=== PATIENT | male | born 1945 | race Caucasian/White ===

== ENCOUNTER → 2016-04-19 | Outpatient (CLI) | payer MEDICARE ==
--- NOTE | 2016-04-19 10:46 | CT ---
EXAMINATION TYPE: CT chest w con DATE OF EXAM: 04/19/2016 10:33 AM COMPARISON: X-ray 04/03/2016 HISTORY: abn CXR CT DLP: 144.4 mGycm Automated exposure control for dose reduction was used. CONTRAST: CT scan of the chest is performed with IV Contrast, patient injected with 100 ml mL of Omnipaque 300. FINDINGS: LUNGS: Large area of consolidation extending from the right hilum into the right upper lobe. Hilar ad enopathy suspected. May be on the basis of a pneumonia. Difficult to see the corresponding bronchus w hich may be filled with debris. Consider bronchoscopy. Differential include endobronchial lesion or m ucous plug. Adenopathy in the right hilum raises this question of either post infectious, pneumonia a denopathy versus neoplasm. Pleural-based subpleural nodularity seen in the left upper lobe axial image 22 measuring 3 mm apical pleural thickening noted bilaterally. MEDIASTINUM: There are no greater than 1 cm hilar or mediastinal lymph nodes. No pericardial effusi on is seen. Cardiomegaly and coronary artery calcification noted. OTHER: No pneumothorax. No sizable pleural effusion. Hypertrophic and degenerative change of the spi ne noted. Osseous structures intact. There are multiple lesions within the liver with the largest manuel suring approximately 1 cm. Nonspecific thickening to the adrenal glands noted. IMPRESSION: 1. Large area of consolidation extending from the right hilum into the right upper lobe. Hilar vanessa opathy suspected. May be on the basis of a pneumonia or postobstructive atelectasis. Neoplasm in the differential diagnosis.. Difficult to see the corresponding bronchus which appears to be filled with debris or compressed. Consider bronchoscopy. Differential include endobronchial lesion or mucous plug. Adenopathy in the ri ght hilum raises this question of either post infectious, pneumonia adenopathy versus neoplasm. 2. There is a 1 cm hepatic lesion which does not meet the criteria of a simple cyst. Measures 23 Houn sfield units follow-up ultrasound or MRI suggested.
== END | disposition home or self-care (01) ==
LOC: RADCTMAIN 09:51
PROVIDERS: ATTEND Internal Medicine
DX: J18.1 Lobar pneumonia, unspecified organism (principal); R59.0 Localized enlarged lymph nodes
CPT/HCPCS: 71260; Q9967

== ENCOUNTER 2016-04-26 11:17 | Day surgery (SDC) | payer MEDICARE ==
[2016-04-25 08:55] VITALS: BMI 21.4
--- NOTE | 2016-04-25 14:28 | HP ---
DATE OF ADMISSION: DATE OF SERVICE: 04/24/2016 CHIEF COMPLAINT: Abnormal x-ray. HISTORY OF PRESENTING ILLNESS: Mr. Nando Chino is a 70-year-old male who was seen, evaluated, examined in the office for problems associated with shortness of breath, cough and history of weight loss. Symptoms started about a month ago. Patient has extensive history of dental infection requiring dental filling, recently has been evaluated for dental capping into the molar tooth in the mid to later part of March. Patient started having problems associated with some fever, chills, cough, shortness of breath and wheezing. He was evaluated for chest x-ray, found to be abnormal and subsequently ended up in having a CT scan of the chest which was reviewed by me including the hard copy found to be abnormal and patient is being evaluated in that regard. Past medical history significant for severe COPD, emphysema. Patient is not taking any breathing treatments, history of BPH and history of recent weight loss. FAMILY HISTORY AND SOCIAL HISTORY: , lives with his . History of smoking. He used to smoke half to 1 pack per day, has intermittently smoked close to about 20 - 25 years. Both parents are . History of COPD on paternal side. Past surgical history is unremarkable and noncontributory. Medications at home include: 1. Flomax 0.4 mg daily. 2. Ventolin HFA as needed. 3. Probiotic. REVIEW OF SYSTEMS: CONCRETE PUDDLER: Denies any loss of consciousness, hemiparesis. CARDIORESPIRATORY: Significant for cough, shortness of breath, intermittent sputum production which is white to light yellow in color. GI/: Otherwise unremarkable. MUSCULOSKELETAL: Unremarkable. DERMATOLOGICAL: Unremarkable and noncontributory. Patient does complain of shortness of breath on exertion, which has been going on for several months though and has been slowly progressive. On examination, blood pressure is 138/82, respiratory rate 16, pulse 81, temperature is 99.1, saturation is 91%, weight is 140 pounds, height is 69 inches. HEENT examination is significant for extensive dental swelling throughout both upper and lower teeth. Oral mucosa is moist. HEENT otherwise unremarkable. NECK: Supple without any lymphadenopathy, jugular venous distention or carotid bruit. LUNGS: Bilateral good air entry is present without significant rales, rhonchi, or rub. Some bronchial breath sounds on the right side, upper part cannot be excluded. HEART: Regular rate and rhythm. S1 and S2 audible. Abdomen is soft. No rebound or rigidity. EXTREMITIES: +1 peripheral pulses. NEUROLOGICAL EXAMINATION: Otherwise, awake and alert. No focal neurological deficit. The chest x-ray reviewed and CT scan of the chest reviewed. CT scan performed April 19, 2016 revealed a right hilar consolidation, right upper lobe dense infiltrate with cavitary formation. A perihilar mass versus lymph node on the right side cannot be excluded with the right middle lobe and right upper lobe collapse. Chest x-ray performed April 04 reviewed as well. Similar finding. IMPRESSION: 1. Pneumonia, which may very well be postobstructive pneumonia, involving the right upper lobe with necrotizing portion. Suspect may be a component of gram-negative. For now, patient is relatively stable. Will start oral antibiotics in the form of oral Levaquin. 2. Right hilar mass with collapse of the right upper lobe or neoplastic process can be excluded. The patient is being scheduled for bronchoscopy and lung biopsy at [facility], 3. Benign prostatic hypertrophy. 4. Generalized anxiety disorder. PLAN AND RECOMMENDATION: As above. Procedure of bronchoscopy has been explained to the patient at length, pros and cons as well as alternatives.
[2016-04-26] MEDS ORDERED: LACTATED RINGERS 1,000 ML IV ONE (12:10)
[2016-04-26] MEDS ORDERED: LIDOCAINE 1% 20 ML VIAL (10MG/ML) FOR IV START INTRADERMA ONE (12:11)
[2016-04-26] MEDS ORDERED: PROPOFOL 10 MG/ML 20 ML VIAL IV ONE (12:44)
[2016-04-26] MEDS ORDERED: PHENYLEPHRINE-0.9% NACL SYG 1 MG/10 ML SYRINGE ONE (12:44)
[2016-04-26] MEDS ORDERED: LIDOCAINE 1% INJ 10MG/ML (20 ML MDV) ONE (12:44)
[2016-04-26] MEDS ORDERED: MIDAZOLAM 2 MG/2 ML VIAL ONE (12:44)
[2016-04-26] MEDS ORDERED: KETAMINE 10 MG/ML 20 ML VIAL ONE (12:44)
[2016-04-26] MEDS ORDERED: LABETALOL 5 MG/ML VIAL MDV ONE (12:44)
[2016-04-26] MEDS ORDERED: LIDOCAINE 2% INJ 20 MG/ML INTRATRACH ONE (12:55)
[2016-04-26] MEDS ORDERED: LIDOCAINE 1%-EPI 1:100,000 20 ML VIAL SUBMUCOSAL ONE (13:01)
[2016-04-26 13:27] VITALS: TEMP 98.4
[2016-04-26 14:02] VITALS: RESP 16
--- NOTE | 2016-04-26 14:26 | XR ---
EXAMINATION TYPE: XR chest 1V portable DATE OF EXAM: 04/26/2016 2:19 PM COMPARISON: 04/03/2016 INDICATION: Pneumonia TECHNIQUE: Single frontal view of the chest is obtained. FINDINGS: The heart size is normal. The pulmonary vasculature is normal. There is opacification of the right lower lobe. IMPRESSION: 1. Right lower lobe pneumonia. Findings are worsened over the interval. Follow-up is recommended.
[2016-04-26 15:15] VITALS: BP 102/60; PULSE 78
--- NOTE | 2016-04-26 22:05 | PCN ---
DATE OF PROCEDURE: 04/26/2015 PROCEDURE: 1. Bronchoscopy. 2. Bronchial biopsy from the right lower lobe, superior segment. 3. Bronchial brushing. 4. Bronchoalveolar lavage from the same area. OPERATIVE DETAIL: Patient was prepared and draped in the usual fashion. Informed consent was obtained from the patient. From the right naris the bronchoscope was entered into the nasopharyngeal area followed by placement into the laryngeal area. Vocal cords were normal in structure and function. Tip of the scope was passed beyond the vocal cords into the trachea. The trachea was normal. The tip of the scope was passed to the left side. Left upper lobe, lingular lobe and left lower lobe along with subsegments were inspected. No endobronchial mass or lesion was identified. Tip of the scope was passed subsequently into the right side. Right upper lobe, including trifurcation, was within normal limits. However, on the right side superior segment of the right lower lobe was compressed and narrowed in size, was filled with blood. Suction was performed. Mucosal growth was present, making airway extremely small in size. BAL was performed followed by brushing and biopsy. Some oozing of the blood was noted. Patient was given epinephrine with lidocaine. That seemed to stop the bleeding. Otherwise, patient tolerated the procedure well except episodes of tachycardia and intermittent desaturation. Patient otherwise tolerated the procedure well. No complication noted.
[2016-05-02 15:20] LABS: Mis test requested (Non-blood) Pneumocytis PNEJ
== END 2016-04-26 15:44 | disposition home or self-care (01) ==
LOC: ORWHC2ENDO 11:17
PROVIDERS: ATTEND Internal Medicine Sleep Medicine
DX: J18.9 Pneumonia, unspecified organism (principal); J43.9 Emphysema, unspecified; N40.0 Benign prostatic hyperplasia without lower urinary tract symptoms; F41.1 Generalized anxiety disorder; Z79.899 Other long term (current) drug therapy; Z87.891 Personal history of nicotine dependence
CPT/HCPCS: 87798; 87541; 88104; 88108; 88305; 88342; 87252; 88341; 87070; 87205; 87116; 87102; 87206; 71010; 31625; 31623; 31624; J2001 ×2; J2250; J2370; J2704; 87299; 87496; 87498; 87502; 87529

== ENCOUNTER → 2016-06-05 | Outpatient (CLI) | payer MEDICARE ==
--- NOTE | 2016-06-05 13:13 | CT ---
EXAMINATION TYPE: CT chest wo con DATE OF EXAM: 06/05/2016 12:56 PM COMPARISON: NONE HISTORY: f/u for right lobe pneumonia CT DLP: 193.[address] of the chest was performed with lung and mediastinal window settings submitted. The la ck of contrast limits evaluation of the vascular, mediastinal and parenchymal structures including th e upper abdomen. LUNGS: Large area of consolidation extending from the right hilum to the right upper lobe pleural huy face persists. There is persistent right hilar mass or adenopathy measuring approximately 4.5 x 3.2 c m. Consolidation also extends from the right infrahilar region medially into the right lower lobe. Th ere is narrowing of the right upper lobe bronchus. Stable 4 mm nodule right lower lobe. The left lung appears clear. MEDIASTINUM/MITZI: Thoracic aorta is of normal caliber with limited evaluation given lack of contrast . The heart is not enlarged. Right hilar mass or adenopathy as discussed above. No spinal lymph node s greater than 1cm. UPPER ABDOMEN: Stable low attenuating hepatic lesions. OTHER: No significant other abnormality. IMPRESSION: 1. Essentially unchanged a large areas of consolidation extending from the right hilum into the righ t upper lobe and right lower lobe as discussed above with right hilar prominence. Underlying mass is not excluded. Neoplasm versus infectious etiologies are considered. Correlation with bronchoscopic fi ndings. 2. Stable hepatic lesions which are nonspecific.
== END | disposition home or self-care (01) ==
LOC: RADCTMAIN 12:31
PROVIDERS: ATTEND Internal Medicine Sleep Medicine
DX: R91.8 Other nonspecific abnormal finding of lung field (principal)
CPT/HCPCS: 71250

== ENCOUNTER 2016-10-24 08:09 | Emergency (ER) | payer MEDICARE ==
[2016-10-24] MEDS ORDERED: SODIUM CHLORIDE 0.9% 1,000 ML IV STA ×2 (08:18)
--- NOTE | 2016-10-24 08:21 | ED ---
Syncope HPI - General Stated Complaint: Anxiety Time Seen by Provider: 10/24/16 08:09 Source: patient, RN notes reviewed, old records reviewed - History of Present Illness Initial Comments: This is a 71-year-old male with a history of a lung mass who was getting an IV started and was got up and apparently passed out. Patient states he always has trouble with blood draws he also states that he was reading an article about thoracic aortic aneurysms at the same time he is getting an IV started he became very anxious and believes this is what triggered everything. He feels fine now. He did have a CAT scan of his chest performed without incident. He was brought here for evaluation by the CT staff. He denies any fevers chills nausea vomiting sweats he does state he hasn't been eating and drinking very well last day or so. He denies any pain or no head neck or back pain no loss of function to his upper or lower extremities. Additionally he states he was started on blood pressure medication 2 weeks ago but did not take any today. He was noted have elevated blood pressure upon arrival. MD Complaint: loss of consciousness - Related Data Home Medications Medication Instructions Recorded Confirmed Aspirin 325 - 650 mg PO QID PRN 04/25/16 10/24/16 Multivitamins, Thera [Multivitamin] 1 tab PO DAILY 04/25/16 10/24/16 Tamsulosin [Flomax] 0.4 mg PO DAILY 04/25/16 10/24/16 Lisinopril [Zestril] 10 mg PO DAILY 10/24/16 10/24/16 Omeprazole [PriLOSEC] 20 mg PO DAILY PRN 10/24/16 10/24/16 Allergies Allergy/AdvReac Type Severity Reaction Status Date / Time No Known Allergies Allergy Verified 10/24/16 08:58 Review of Systems ROS Statement: Those systems with pertinent positive or pertinent negative responses have been documented in the HPI. ROS Other: All systems not noted in ROS Statement are negative. Past Medical History Past Medical History: Asthma, Pneumonia, Prostate Disorder Additional Past Medical History / Comment(s): SOB, frequent urination, productive cough since starting inhaler yesterday History of Any Multi-Drug Resistant Organisms: None Reported Past Surgical History: Hernia Repair, Orthopedic Surgery Additional Past Surgical History / Comment(s): rt hand surgery Past Anesthesia/Blood Transfusion Reactions: No Reported Reaction Past Psychological History: No Psychological Hx Reported Smoking Status: Former smoker Past Alcohol Use History: None Reported Additional Past Alcohol Use History / Comment(s): smoked 1/2 ppd- quit smoking 03/30/16- smoked on and off for 20-30 yrs Past Drug Use History: None Reported - Past Family History Mother Family Medical History: No Reported History General Exam - General Exam Comments Initial Comments: This is a well-developed well-nourished awake alert oriented 3 male General appearance: alert, anxious Head exam: Present: atraumatic, normocephalic, normal inspection Eye exam: Present: normal appearance, PERRL, EOMI. Absent: scleral icterus, conjunctival injection, periorbital swelling ENT exam: Present: normal exam, mucous membranes moist Neck exam: Present: normal inspection. Absent: tenderness, meningismus, lymphadenopathy Respiratory exam: Present: normal lung sounds bilaterally. Absent: respiratory distress, wheezes, rales, rhonchi, stridor Cardiovascular Exam: Present: regular rate, normal rhythm, normal heart sounds. Absent: systolic murmur, diastolic murmur, rubs, gallop, clicks GI/Abdominal exam: Present: soft, normal bowel sounds. Absent: distended, tenderness, guarding, rebound, rigid Extremities exam: Present: normal inspection, full ROM, normal capillary refill. Absent: tenderness, pedal edema, joint swelling, calf tenderness Back exam: Present: normal inspection Neurological exam: Present: alert, oriented X3, CN II-XII intact Psychiatric exam: Present: normal affect, anxious Skin exam: Present: warm, dry, intact, normal color. Absent: rash Course Vital Signs 10/24/16 10/24/16 08:15 08:27 Temperature 97.6 F Pulse Rate 63 65 Respiratory 18 Rate Blood Pressure 174/105 172/88 O2 Sat by Pulse 100 Oximetry EKG Findings - EKG Results: EKG: interpreted by ROSANNA, sinus rhythm (Sinus rhythm with a rate of 63. Arrival 150 to QRS 82 QT/QTC of 442/452. ST-T wave changes) Medical Decision Making - Medical Decision Making The patient is showing totally back to normal he does not want anymore lab work or anything else he is awake alert oriented 3 in no acute distress his anxiety seems to a past he states he will take his medication when he gets home for his blood pressure. The presentation is consistent with a vasovagal episode. - Lab Data Lab Results 10/24/16 Range/Units 08:30 Urine Color Light Yellow Urine Appearance Clear (Clear) Urine pH 7.0 (5.0-8.0) Ur Specific [place] 1.045 H (1.001-1.035) Urine Protein Negative (Negative) Urine Glucose (UA) Negative (Negative) Urine Ketones Negative (Negative) Urine Blood Negative (Negative) Urine Nitrite Negative (Negative) Urine Bilirubin Negative (Negative) Urine Urobilinogen <2.0 (<2.0) mg/dL Ur Leukocyte Esterase Negative (Negative) Disposition Clinical Impression: Vasovagal syncope, Anxiety, Hypertension Disposition: HOME SELF-CARE Condition: Good Instructions: Syncope (ED), Anxiety (ED), Hypertension (ED) Referrals: Mila Giraldo MD [Primary Care Provider] - 1-2 days
[2016-10-24 08:27] VITALS: RESP 18; TEMP 97.6
[2016-10-24 08:48] LABS: Appearance,Urine Clear (Clear); Bilirubin,Urine Negative (Negative); Glucose,Urine (UA) Negative (Negative); Ketones,Urine Negative (Negative); Leukocyte Esterase,Urine Negative (Negative); Nitrite,Urine Negative (Negative); Protein,Urine Negative (Negative); Specific Gravity,Urine 1.045 (1.001-1.035); UA Billing (MACRO vs. MICRO) CHEM; Urobilinogen,Urine <2.0 mg/dL (<2.0)
[2016-10-24 09:13] LABS: Creatine Kinase 169 U/L (55-170)
[2016-10-24 09:24] LABS: Creatine Kinase MB 1.6 ng/mL (0.0-2.4); Troponin I <0.012 ng/mL (0.000-0.034)
[2016-10-24 09:31] VITALS: BP 169/94; PULSE 69
== END 2016-10-24 09:20 | disposition home or self-care (01) ==
LOC: EC 08:09
DX: F41.9 Anxiety disorder, unspecified (principal); I10 Essential (primary) hypertension; R55 Syncope and collapse; N42.9 Disorder of prostate, unspecified; Z87.891 Personal history of nicotine dependence; Z79.899 Other long term (current) drug therapy; Z53.20 Procedure and treatment not carried out because of patient's decision for unspecified reasons
CPT/HCPCS: 36415; 81003; 82550; 82553; 84484; 93005; 99284

== ENCOUNTER → 2016-10-24 | Outpatient (CLI) | payer MEDICARE ==
[2016-10-24 07:11] LABS: Blood Urea Nitrogen 27 mg/dL (9-20); Non-African American GFR(MDRD) >60 (>60 ml/min/1.73 sqM)
--- NOTE | 2016-10-24 08:33 | CT ---
EXAMINATION TYPE: CT chest w con DATE OF EXAM: 10/24/2016 COMPARISON: 06/05/2016 HISTORY: 70-year-old male with Lung mass TECHNIQUE: Contiguous axial scanning of the chest after the administration of 100 ml mL of Omnipaque 300. Coronal/sagittal reconstructions performed. CT DLP: 203.50mGycm. Automatic exposure control utilized for a dose reduction. FINDINGS: The heart is normal size without pericardial effusion. Coronary vessel calcifications are present uri nary marker for coronary artery disease. The upper descending thoracic aorta is ectatic at 3.0 cm. There is conventional arch vessel branching anatomy. A small pretracheal lymph node remains measuring 7 mm versus 9 mm, previously. Additional soft tissue prominence in the right hilar and infrahilar region has essentially resolved. Minimal perihilar bron chovascular density is present at the hilum suggesting residual thickening. The additional masslike consolidation which extended down into the right middle lobe and anteromedial right lower lobe shows near complete resolution with residual patchy and strandy densities especiall y in the right middle lobe. No new consolidation or pleural effusion. A couple nonspecific hypodense lesions within the liver are stable measuring up to 1.5 cm, suspected cysts. Bones: [id number] multilevel degenerative disc disease specially in the mid to lower thoracic s pine. No osseous destructive process. IMPRESSION: Marked interval improvement. The previous right perihilar masslike consolidation which extended throu ghout the right middle lobe and anteromedial right lower lobe has nearly resolved. Some residual patc hy and strandy density remains especially in the right middle lobe which can be followed.
== END | disposition home or self-care (01) ==
LOC: RADCTMAIN 06:33
PROVIDERS: ATTEND Internal Medicine Critical Care Medicine
DX: R91.8 Other nonspecific abnormal finding of lung field (principal); Z88.1 Allergy status to other antibiotic agents
CPT/HCPCS: 82565; 84520; 71260; 36415; Q9967

== ENCOUNTER → 2020-07-26 | Outpatient (CLI) | payer MEDICARE ==
--- NOTE | 2020-07-26 20:47 | XR ---
EXAMINATION TYPE: XR cervical spine comp DATE OF EXAM: 07/26/2020 COMPARISON: None HISTORY: 74-year-old male [id number], cervicalgia, neck pain and stiffness. TECHNIQUE: 5 views FINDINGS: Normal odontoid view. No predental space widening or prevertebral soft tissue swelling. Moderate disc position but degenerative change mid to lower cervical spine with disc space narrowing and endplate spondylosis. Scattered facet and uncovertebral joint arthropathy. Changes result in variable mild bon y neuroforaminal narrowing on the right and moderate on the left at C5-C6 and C6-C7. The cervicothora cic junction is obscured by the patient's shoulders and not assessed. Remaining alignment is maintain ed. IMPRESSION: Moderate spondylotic change mid to lower cervical spine. The cervicothoracic junction is obscured by the patient's shoulders and not assessed.
== END | disposition home or self-care (01) ==
LOC: RADXRYALE 09:24
PROVIDERS: ATTEND Physician Assistant Medical
DX: M47.812 Spondylosis without myelopathy or radiculopathy, cervical region (principal)
CPT/HCPCS: 72050